=== PATIENT | male | born 1945 | race Two or more races ===

== ENCOUNTER → 2021-08-10 | Day surgery (SDC) | payer OTHER ==
[~2021-08-10] MED LIST: HYZAAR 100-251 EACH PO; PROCAR PO; SYNTHROID137 MCG PO
== END | disposition home or self-care (01) ==
LOC: ADM 08-05 07:00 → CIR.AMB 05:00
PROVIDERS: ATTEND Specialist
DX: K40.30 Unilateral inguinal hernia, with obstruction, without gangrene, not specified as recurrent (principal); I10 Essential (primary) hypertension; E03.9 Hypothyroidism, unspecified; R73.03 Prediabetes; K59.09 Other constipation; Z20.822 Contact with and (suspected) exposure to COVID-19